=== PATIENT | female | born 1935 | race Caucasian/White ===

== ENCOUNTER 2017-04-28 11:18 | Emergency (ER) | payer MEDICARE ==
[2017-04-28] MEDS ORDERED: ARMO60TA PO (11:35)
[2017-04-28] MEDS ORDERED: BUPR150CR PO (11:35)
--- NOTE | 2017-04-28 12:01 | PD ---
HPI Chief Complaint: Pain: Acute or Chronic Time Seen by Provider: 11:30 Travel History International Travel<30 days: No Contact w/Intl Traveler<30days: No Traveled to known affect area: No History of Present Illness HPI 82-year-old female complains of right buttocks pain. She has been engaged with physical therapy which she reports is somewhat strenuous and after flying here what had been mild pain became much worse. She cannot ambulate due to it. The flight was about 3 hours. No history DVT. There is no shortness of breath. The pain is slightly worse with pressure upon it and severe with attempts to ambulate. Patient's family member the nurse and expressed concern that the patient might be suffering from a DVT thus prompting ER evaluation. PFSH Past Medical History Depression: Yes Medical other: Yes (PAGET'S DISEASE) Thyroid Disease: Yes Past Surgical History Gynecologic Surgery: Yes Social History Alcohol Use: No Tobacco Use: No Substance Use: No Allergies-Medications (Allergen,Severity, Reaction): Coded Allergies: codeine (Verified Allergy, Unknown, 04/28/17) Reported Meds & Prescriptions Reported Meds & Active Scripts Active Reported Wellbutrin SR 12 HR (Bupropion HCl) Unknown Strength Tab Unknown Dose PO Q12HR Register Thyroid (Thyroid) Unknown Strength Tab Unknown Dose PO DAILY Review of Systems Except as stated in HPI: all other systems reviewed are Neg General / Constitutional: No: Fever Physical Exam Narrative GENERAL: 82-year-old female well-nourished well-developed pleasant SKIN: Warm and dry. HEAD: Atraumatic. Normocephalic. EYES: Pupils equal and round. No scleral icterus. No injection or drainage. ENT: No nasal bleeding or discharge. Mucous membranes pink and moist. NECK: Trachea midline. No JVD. CARDIOVASCULAR: Regular rate and rhythm. RESPIRATORY: No accessory muscle use. Clear to auscultation. Breath sounds equal bilaterally. GASTROINTESTINAL: Abdomen soft, non-tender, nondistended. Hepatic and splenic margins not palpable. MUSCULOSKELETAL: Extremities without clubbing, cyanosis, or edema. No obvious deformities. Flexion at the hip is intact bilaterally. There is no significant tenderness palpation overlying the greater trochanter on either side. There is no significant tenderness to palpation overlying the region of the right buttocks. NEUROLOGICAL: Awake and alert. No obvious cranial nerve deficits. Motor grossly within normal limits. Five out of 5 muscle strength in the arms and legs. Normal speech. PSYCHIATRIC: Appropriate mood and affect; insight and judgment normal. Data Data Orders Orders Ed Discharge Order (04/28/17 12:07) [facility] Medical Decision Making Medical Screen Exam Complete: Yes Emergency Medical Condition: Yes Medical Record Reviewed: Yes Differential Diagnosis fracture, dvt, arthritis, delayed onset muscle soreness Narrative Course dvt considered reasonably safely excluded based on exam and history rest ice discussed along with weight bearing as tolerated walker prescription written at behest of son Diagnosis Primary Impression: Strain of gluteus medius of right lower extremity Qualified Codes: S76.011A - Strain of muscle, fascia and tendon of right hip, initial encounter Med/Other Pt SpecificInfo: Prescription(s) given Disposition: 01 DISCHARGE HOME Condition: Stable Gurvinder Swanson MD Apr 28, 2017 12:01
== END 2017-04-28 12:24 | disposition home or self-care (01) ==
LOC: NEPD 11:18
DX: S76.011A Strain of muscle, fascia and tendon of right hip, initial encounter (principal); F32.9 Major depressive disorder, single episode, unspecified; E07.9 Disorder of thyroid, unspecified; X58.XXXA Exposure to other specified factors, initial encounter
CPT/HCPCS: 99281